=== PATIENT | female | born 2000 | race Caucasian/White ===

== ENCOUNTER 2020-05-24 02:04 | Emergency (ER) | payer BC ==
[2020-05-24] MEDS ORDERED: Mag-Al 1200 mg/1200 mg/30 ML UDCUP ONE (03:06)
[2020-05-24] MEDS ORDERED: Lidocaine Viscous Sol 2% 15 ml UD Cup ONE (03:06)
[2020-05-24] MEDS ORDERED: Dexamethasone 4 MG TAB ONE (04:05)
== END 2020-05-24 04:20 | disposition home or self-care (01) ==
LOC: ERS 02:04
DX: R07.0 Pain in throat (principal)
CPT/HCPCS: J8540

== ENCOUNTER 2020-09-24 07:28 | Outpatient (CLI) | payer BC | END 2020-09-24 07:29 | disposition home or self-care (01) | LOC: NM 07:28 | PROVIDERS: ATTEND Internal Medicine Gastroenterology | DX: K59.00 Constipation, unspecified (principal); R11.2 Nausea with vomiting, unspecified; R10.13 Epigastric pain | CPT/HCPCS: 78227; A9537 ==

== ENCOUNTER 2020-10-07 09:41 | Outpatient (CLI) | payer BC ==
--- NOTE | 2020-10-07 13:36 | CT ---
CT ABDOMEN AND PELVIS WITH IV CONTRAST 10/07/2020 CLINICAL INFORMATION: Nausea and vomiting with epigastric abdominal pain. Symptoms have been present for 2 months. COMPARISON: None. Technique: Multiple contiguous axial CT images are obtained through the abdomen and pelvis with IV contrast. Cor onal reformatted images are provided. FINDINGS: Lower Chest: Nonspecific 5 mm pulmonary nodule is seen in the right lower lobe incompletely imaged. L alessandro bases are otherwise clear. Vessels: Abdominal aorta is normal in caliber. Abdomen: Portal vein:Patent Gallbladder: Within normal limits for CT imaging. Liver: A subtle area of diminished attenuation is seen in the lateral right hepatic lobe which is jus t beneath a rib, and this is likely attributable to artifact secondary to the rib in this region. No definite focal hepatic lesion is appreciated. Low-attenuation area left hepatic lobe adjacent to t he falciform ligament is likely due to focal area of fatty infiltration or small perfusion defect. Spleen: within normal limits. Pancreas: within normal limits. Adrenals: within normal limits. Kidneys: within normal limits. Bowel: Small to moderate amount retained fecal material seen in the region of the ascending and proxi mal transverse colon as well as sigmoid colon. Loops of small bowel are normal in caliber. Appendix: The appendix is visualized and normal in caliber. Peritoneum: No ascites or free air; no fluid collection. Mesentery and Retroperitoneum: No enlarged mesenteric or retroperitoneal lymph nodes. Abdominal Wall: within normal limits. Pelvis: Reproductive Organs: No pelvic masses. Bladder: within normal limits. Bones: No suspicious lytic or sclerotic osseous lesions. IMPRESSION: 1. Nonspecific incompletely imaged 5 mm right lower lobe pulmonary nodule. 2. No acute findings in the abdomen or pelvis. 3. Constipation.
[2020-10-07] MEDS ORDERED: Iopamidol 370 76% 100 ML VIAL ONE (13:52)
[2020-10-07] MEDS ORDERED: Iopamidol 370 76% 50 ML VIAL FS ONE (13:52)
== END 2020-10-07 09:42 | disposition home or self-care (01) ==
LOC: CT 09:41
PROVIDERS: ATTEND Internal Medicine Gastroenterology
DX: R10.13 Epigastric pain (principal); R11.2 Nausea with vomiting, unspecified; K59.00 Constipation, unspecified; R91.1 Solitary pulmonary nodule
CPT/HCPCS: 74177; Q9967

== ENCOUNTER 2020-10-19 10:48 | Outpatient (CLI) | payer BC | END 2020-10-19 10:49 | disposition home or self-care (01) | LOC: BICRAD 10:48 | PROVIDERS: ATTEND Internal Medicine Gastroenterology | DX: R91.8 Other nonspecific abnormal finding of lung field (principal) | CPT/HCPCS: 71046 ==

== ENCOUNTER 2020-10-29 02:25 | Emergency (ER) | payer BC ==
[2020-10-29 02:57] LABS: #Basophils 0.1 thou/uL (0.0-0.2); #Lymphocytes 3.3 thou/uL (1.20-3.40); #Monocytes 0.4 thou/uL (0.11-0.59); #Neutrophils 3.1 thou/uL (1.40-6.50); %Basophils 1.4 % (0.0-1.0); %Eosinophils 0.4 % (0.0-10.0); %Lymphocytes 48.1 % (28.0-48.0); %Monocytes 5.8 % (0.0-4.0); %Neutrophils 44.3 % (31.0-61.0); Mean Corpuscular HGB CONC 34.6 g/dL (32.0-36.0); Mean Corpuscular Hemoglobin 30.4 pg (25.0-35.0); Mean Corpuscular Volume 87.7 fL (78.0-98.0); Mean Platelet Volume 7.5 fL (7.4-10.4); Platelet Count 189 thou/uL (130-400); RBC Distribution Width 11.4 % (11.5-14.5); Red Blood Cell (RBC) Count 5.26 mill/uL (4.00-5.20); White Blood Cell (WBC) Count 6.9 thou/uL (4.8-10.8)
[2020-10-29 03:02] LABS: BHCG - Serum Negative (NEGATIVE); Pregs Control Background? CLEAR/WHITE (CLR/WHITE); Pregs Control Bar Appear? YES (CONTROL BAR)
[2020-10-29 03:17] LABS: ALT (SGPT) 12 U/L (8-55); AST (SGOT) 16 U/L (5-34); Albumin 4.3 g/dL (3.5-5.0); Alkaline Phosphatase 64 U/L (40-100); Anion Gap 14 mmol/L (10-20); BUN (Urea Nitrogen) 6 mg/dL (7.0-18.7); Bilirubin, Total 0.4 mg/dL (0.2-1.2); Calc. Creatinine Clearance 0 mL/min (70-130); Calcium 9.7 mg/dL (7.8-10.44); Carbon Dioxide 25 mmol/L (22-29); Chloride 105 mmol/L (98-107); Glucose 87 mg/dL (70-105); Lipase 19 U/L (8-78); Potassium 3.8 mmol/L (3.5-5.1); Protein, Total 7.3 g/dL (6.0-8.3); Sodium 140 mmol/L (136-145)
[2020-10-29] MEDS ORDERED: Morphine 4 MG/ML VIAL ONE (03:42)
[2020-10-29] MEDS ORDERED: Ondansetron PF 4 MG/2 ML Vial ONE (03:43)
[2020-10-29] MEDS ORDERED: Ketorolac Tromethamine 30 MG/ML VIAL ONE (04:21)
[2020-10-29 04:23] LABS: Bacteria/HPF None Seen HPF (None Seen); Bilirubin Negative (Negative); Blood, Urine Negative (Negative); Clarity Clear (Clear); Glucose, Urine (Dipstick) Normal (Negative); Ketone, Urine Negative (Negative); Leukocyte 75 Leu/uL (Negative); Mucous/LPF 1+ LPF (<2+); Nitrite Negative (Negative); Protein, Urine (Dipstick) Negative (Neg-Trace); RBC/HPF 0-3 HPF (0-3); Specific Gravity, Urine 1.019 (1.002-1.036); Urobilinogen Normal mg/dL (Less than 2)
[2020-10-29] MEDS ORDERED: Glycerin Pediatric Sup. (4ml) ONE (06:05)
[2020-10-29] MEDS ORDERED: Iopamidol 370 76% 100 ML VIAL ONE (12:03)
== END 2020-10-29 06:40 | disposition home or self-care (01) ==
LOC: ERS 02:25
DX: K56.7 Ileus, unspecified (principal); Z79.899 Other long term (current) drug therapy
CPT/HCPCS: 71045; 74177; 80053; 81003; 81015; 83690; 84703; 85025; 96372; 96374; 96375; J0500; J1885; J2270; J2405

== ENCOUNTER 2020-10-29 16:22 | Inpatient (IN) | payer BC ==
[2020-10-29] MEDS ORDERED: Morphine 4 MG/ML VIAL ONE (18:22)
[2020-10-29] MEDS ORDERED: Magnesium Citrate 300 ML BOT ONE (18:22)
[2020-10-29] MEDS ORDERED: Ondansetron PF 4 MG/2 ML Vial ONE (18:22)
[2020-10-29] MEDS ORDERED: Pantoprazole 40 MG VIAL ONE (18:59)
[2020-10-29] MEDS ORDERED: Promethazine HCl 25 MG/ML VIAL ONE (19:01)
[2020-10-29] MEDS ORDERED: diphenhydrAMINE 12.5 MG/5 ML UDCUP ONE (19:04)
[2020-10-29] MEDS ORDERED: diphenhydrAMINE 50 MG/ML VIAL ONE (19:05)
[2020-10-29 20:45] LABS: #Lymphocytes 0.9 thou/uL (1.20-3.40); #Monocytes 0.3 thou/uL (0.11-0.59); #Neutrophils 9.6 thou/uL (1.40-6.50); %Lymphocytes 8.4 % (28.0-48.0); %Monocytes 2.7 % (0.0-4.0); %Neutrophils 88.8 % (31.0-61.0); Mean Corpuscular HGB CONC 33.8 g/dL (32.0-36.0); Mean Corpuscular Hemoglobin 29.7 pg (25.0-35.0); Mean Corpuscular Volume 87.9 fL (78.0-98.0); Mean Platelet Volume 7.7 fL (7.4-10.4); Platelet Count 198 thou/uL (130-400); RBC Distribution Width 11.4 % (11.5-14.5); Red Blood Cell (RBC) Count 5.05 mill/uL (4.00-5.20); White Blood Cell (WBC) Count 10.8 thou/uL (4.8-10.8)
[2020-10-29 21:01] LABS: ALT (SGPT) 11 U/L (8-55); AST (SGOT) 18 U/L (5-34); Albumin 3.9 g/dL (3.5-5.0); Alkaline Phosphatase 52 U/L (40-100); Anion Gap 14 mmol/L (10-20); BUN (Urea Nitrogen) 6 mg/dL (7.0-18.7); Bilirubin, Total 0.4 mg/dL (0.2-1.2); Calc. Creatinine Clearance 0 mL/min (70-130); Calcium 9.1 mg/dL (7.8-10.44); Carbon Dioxide 16 mmol/L (22-29); Chloride 112 mmol/L (98-107); Globulin 2.9 g/dL (2.4-3.5); Glucose 111 mg/dL (70-105); Potassium 4.2 mmol/L (3.5-5.1); Protein, Total 6.8 g/dL (6.0-8.3); Sodium 138 mmol/L (136-145)
[2020-10-29 22:45] LABS: Bilirubin Negative (Negative); Blood, Urine Negative (Negative); Clarity Clear (Clear); Glucose, Urine (Dipstick) Greater than 1000 mg/dL (Negative); Ketone, Urine Negative (Negative); Leukocyte Negative Leu/uL (Negative); Nitrite Negative (Negative); Protein, Urine (Dipstick) 10 mg/dL (Neg-Trace); Specific Gravity, Urine 1.026 (1.002-1.036); Urobilinogen Normal mg/dL (Less than 2)
[2020-10-29] MEDS ORDERED: Ondansetron ODT 4 MG TAB SL PRN (23:30)
[2020-10-29] MEDS ORDERED: Ondansetron PF 4 MG/2 ML Vial IVP PRN (23:30)
[2020-10-29] MEDS ORDERED: Sodium Chloride 0.9% 1,000 ML IV SCH (23:30)
[2020-10-29] MEDS ORDERED: Acetaminophen 325 MG TAB PO PRN (23:30)
[2020-10-30 01:05] VITALS: BMI 23.3
[2020-10-30 04:51] LABS: SARS-CoV-2 PCR by NAA Not Detected (NotDetected)
[2020-10-30 06:03] LABS: #Basophils 0.2 thou/uL (0.0-0.2); #Lymphocytes 2.1 thou/uL (1.20-3.40); #Monocytes 0.6 thou/uL (0.11-0.59); #Neutrophils 6.9 thou/uL (1.40-6.50); %Basophils 1.6 % (0.0-1.0); %Lymphocytes 21.2 % (28.0-48.0); %Monocytes 5.8 % (0.0-4.0); %Neutrophils 71.3 % (31.0-61.0); Hemoglobin 13.2 g/dL (12.0-16.0); Mean Corpuscular HGB CONC 34.7 g/dL (32.0-36.0); Mean Corpuscular Hemoglobin 30.8 pg (25.0-35.0); Mean Corpuscular Volume 88.8 fL (78.0-98.0); Platelet Count 160 thou/uL (130-400); RBC Distribution Width 11.4 % (11.5-14.5); White Blood Cell (WBC) Count 9.6 thou/uL (4.8-10.8)
[2020-10-30 06:29] LABS: Anion Gap 9 mmol/L (10-20); BUN (Urea Nitrogen) 7 mg/dL (7.0-18.7); Calc. Creatinine Clearance 118 mL/min (70-130); Calcium 8.9 mg/dL (7.8-10.44); Carbon Dioxide 23 mmol/L (22-29); Chloride 111 mmol/L (98-107); Glucose 88 mg/dL (70-105); Potassium 3.8 mmol/L (3.5-5.1); Sodium 139 mmol/L (136-145)
[2020-10-30] MEDS: Enoxaparin Sodium 40 MG/0.4 ML SYRINGE SC SCH (09:44)
[2020-10-30] MEDS ORDERED: Acetaminophen 500 MG TAB PO PRN (11:37)
[2020-10-30] MEDS ORDERED: Ondansetron PF 4 MG/2 ML Vial IVP PRN (11:37)
[2020-10-30] MEDS ORDERED: Ketorolac Tromethamine 30 MG/ML VIAL IVP PRN (11:43)
[2020-10-30] MEDS: Metoclopramide HCl 10 MG/2 ML VIAL IVP SCH ×2 (14:26→20:51)
[2020-10-31] MEDS: Metoclopramide HCl 10 MG/2 ML VIAL IVP SCH (06:36)
[2020-10-31 07:08] VITALS: BP 109/64; TEMP 98.6
[2020-10-31] MEDS: Enoxaparin Sodium 40 MG/0.4 ML SYRINGE SC SCH (08:59)
== END 2020-10-31 11:50 | disposition home or self-care (01) | DRG 392 ==
LOC: ERS 16:22 → T4-A 21:13 → OBSVTOIN 21:13
PROVIDERS: ADMIT Student in an Organized Health Care Education/Training Program; ATTEND Internal Medicine
DX: K59.00 Constipation, unspecified (principal); E61.1 Iron deficiency; R11.0 Nausea; R11.10 Vomiting, unspecified
CPT/HCPCS: 36415; 71045; 74177; 80048; 80053; 81003; 81015; 83690; 84703; 85025; 87635; 96365; 96372; 96374; 96375; C9113; G0378; J0500; J1200; J1885; J2270; J2405; J2550; J2765; Q0163; Q9967; U0003; U0005

== ENCOUNTER 2020-11-03 08:05 | Outpatient (CLI) | payer BC | END 2020-11-03 08:06 | disposition home or self-care (01) | LOC: NM 08:05 | PROVIDERS: ATTEND Physician Assistant Medical | DX: R10.13 Epigastric pain (principal); K59.00 Constipation, unspecified; R11.2 Nausea with vomiting, unspecified; R63.4 Abnormal weight loss | CPT/HCPCS: 78264; A9541 ==

== ENCOUNTER 2021-10-10 13:43 | Outpatient (CLI) | payer BC ==
[2021-10-10 14:22] LABS: BHCG - Serum Negative (NEGATIVE); Pregs Control Background? CLEAR/WHITE (CLR/WHITE); Pregs Control Bar Appear? YES (CONTROL BAR)
[2021-10-10 23:37] LABS: SARS-CoV-2 PCR by NAA Not Detected (NotDetected)
== END 2021-10-10 13:44 | disposition home or self-care (01) ==
LOC: LABBT 13:43
PROVIDERS: ATTEND Specialist
DX: Z01.812 Encounter for preprocedural laboratory examination (principal); J32.8 Other chronic sinusitis; J34.3 Hypertrophy of nasal turbinates; R09.81 Nasal congestion; Z20.822 Contact with and (suspected) exposure to COVID-19
CPT/HCPCS: 84703; 85014; U0003; U0005